=== PATIENT | male | born 1965 | race Caucasian/White ===

== ENCOUNTER 2017-10-16 20:15 | Emergency (ER) | payer OTHER ==
[~2017-10-16] VITALS: Ht 170.2 cm; Wt 79.4 kg
[2017-10-16] MEDS ORDERED: Mucinex600 MG PO (20:55)
[2017-10-16] MEDS ORDERED: Pseudoephedrine30 MG PO (20:55)
== END 2017-10-16 21:06 | disposition home or self-care (01) ==
LOC: ER 20:15
DX: R09.81 Nasal congestion (principal); Z91.030 Bee allergy status; Z88.0 Allergy status to penicillin; Z90.49 Acquired absence of other specified parts of digestive tract; Z87.891 Personal history of nicotine dependence
CPT/HCPCS: 99283

== ENCOUNTER 2019-04-23 08:02 | Day surgery (SDC) | payer OTHER ==
[~2019-04-23] VITALS: Ht 170.2 cm; Wt 80.3 kg
[~2019-04-23 08:02] MED LIST: Mucinex600 MG PO; Pseudoephedrine30 MG PO
--- NOTE | 2019-04-23 09:50 | NUR ---
04/23/19 0950 Cheyanne Shetty HR 46 IN ENDO ROOM, DR. CHA HERCULES. CONTINUE TO MONITOR.
--- NOTE | 2019-04-23 16:19 | NUR ---
04/23/19 3994 Cheyanne Shetty PT. ASKED IF HE SNORED DURING THE PROCEDURE. PT. INSTRUCTED HE DID. PT. STATED "I CAN TELL BECAUSE I HAVE A SORE THROAT." PT. DRINKING FLUIDS FINE.
== END 2019-04-23 10:35 | disposition home or self-care (01) ==
LOC: ORSCSDS 08:02
PROVIDERS: Internal Medicine Gastroenterology
PROC: 0DJD8ZZ Inspection of Lower Intestinal Tract, Via Natural or Artificial Opening Endoscopic (ICD-10-PCS; principal; 2019-04-23 09:30)
DX: Z12.11 Encounter for screening for malignant neoplasm of colon (principal); K57.30 Diverticulosis of large intestine without perforation or abscess without bleeding; K64.8 Other hemorrhoids; K21.9 Gastro-esophageal reflux disease without esophagitis; E78.5 Hyperlipidemia, unspecified; E03.9 Hypothyroidism, unspecified; J44.9 Chronic obstructive pulmonary disease, unspecified; Z87.891 Personal history of nicotine dependence
CPT/HCPCS: J2704; J7120